=== PATIENT | female | born 1990 | race African-American/Black ===

== ENCOUNTER 2022-10-10 16:26 | Outpatient (CLI) | payer BC, SELFPAY ==
--- NOTE | ~2022-10-10 | US_ITS ---
EXAMINATION: US OB <=14 wk fetus w TV INDICATION: SPOTTING 1ST TRIMESTER, Estimated Gestational Age: 8 weeks, 1 days by LMP. TECHNIQUE: Sonography of the pelvis was performed by transabdominal and transvaginal techniques. COMPARISON: None. RESULT: Uterus: Orientation: Anteverted. 7.7 x 5.4 x 6.4 cm. Myometrium: homogeneous echogenicity. Intrauter ine gestational sac: Not seen. Right ovary: 3.8 x 1.8 x 1.5 cm. Normal sonographic appearance with physiologic follicles. . No ad nexal mass. Left ovary: 3.1 x 3.6 x 3.0 cm. Normal sonographic appearance with physiologic follicles. . No adn exal mass. Pelvis free fluid: None. IMPRESSION: 1. No intrauterine gestational sac detected greater than 6 weeks after the last menstrual period, rep resenting of unknown location with findings that are suspicious for failure. 2. No sonographic evidence of ectopic . 3. 17.5 mL left ovarian volume, with preserved vascular flow and no discrete ovarian mass. Reviewed, dictated and finalized at location K. IMPRESSION: 1. No intrauterine gestational sac detected greater than 6 weeks after the last menstrual period, representing of unknown location with findings cecilia t are suspicious for failure. 2. No sonographic evidence of ectopic . 3. 17.5 mL left ovarian volume, with preserved vascular flow and no discrete ov zoë mass.
== END 2022-10-10 16:27 | disposition home or self-care (01) ==
PROVIDERS: Visit Provider Obstetrics & Gynecology Gynecology
DX: O26.851 Spotting complicating pregnancy, first trimester (principal); Z3A.01 Less than 8 weeks gestation of pregnancy
CPT/HCPCS: 36415; 76801; 76817; 84702; 85461; 86850; 86900; 86901

== ENCOUNTER 2022-10-12 15:17 | Outpatient (CLI) | payer BC, SELFPAY | END 2022-10-12 15:18 | disposition home or self-care (01) | LOC: ANHLAB 15:19 | PROVIDERS: Visit Provider Obstetrics & Gynecology Gynecology | DX: O20.0 Threatened abortion (principal); Z3A.00 Weeks of gestation of pregnancy not specified | CPT/HCPCS: 36415; 84702 ==

== ENCOUNTER 2022-10-24 16:24 | Outpatient (CLI) | payer BC, SELFPAY ==
--- NOTE | ~2022-10-24 | US_ITS ---
EXAMINATION: US OB <=14 wk fetus w TV INDICATION: INAPPROPIATE BHCG TECHNIQUE: Sonography of the pelvis was performed by transabdominal and transvaginal techniques. COMPARISON: None. RESULT: Uterus: Orientation: Anteverted. 7.4 x 4.3 x 6.1 cm. Myometrium: Multiple uterine fibroids, the larg est measuring up to 4.2 cm. Endometrial stripe 5 mm. Intrauterine gestational sac: Not seen. Right ovary: 3.2 x 1.2 x 3.9 cm. Normal sonographic appearance with physiologic follicles. Vascular flow is present. No adnexal mass. Left ovary: 2.5 x 3.1 x 1.2 cm. Normal sonographic appearance with physiologic follicles. Vascular flow is present. No adnexal mass. Pelvis free fluid: No free fluid. IMPRESSION: No gestational sac detected. No sonographic evidence of ectopic . Multiple uterine fibroids. Reviewed, dictated and finalized at location K. IMPRESSION: No gestational sac detected. No sonographic evidence of ectopic . Mult iple uterine fibroids.
== END 2022-10-24 16:25 | disposition home or self-care (01) ==
PROVIDERS: Visit Provider Obstetrics & Gynecology Gynecology
DX: O02.81 Inappropriate change in quantitative human chorionic gonadotropin (hCG) in early pregnancy (principal); Z3A.00 Weeks of gestation of pregnancy not specified; D25.9 Leiomyoma of uterus, unspecified
CPT/HCPCS: 76801; 76817

== ENCOUNTER 2022-10-27 02:58 | Day surgery (SDC) | payer BC, SELFPAY ==
[2022-10-26 09:54] VITALS: BMI 29.3
--- NOTE | 2022-10-26 10:00 | PC.NURSE ---
Report to the Outpatient Waiting Room, entrance under the green pavilion located off [facility], at time _1100_ on date _10/27/22. Planned Procedure Time: _1300_. Time changes happen often and if your time is changed the preop area will call you the afternoon before. - You and your visitor will be asked to self-screen and do not enter if you have any COVID symptoms. - A mask is optional within the hospital at this time. Patients may have clear liquids (water, carbonated beverages, clear teas, apple juice) until 3 hours prior to surgery with a maximum of 20 ounces. - No food from midnight until time of surgery - Infants may have breast milk until 4 hours before surgery, formula 6 hours prior to surgery. - Children will be allowed to drink immediately following surgery. If applicable, please bring a bottle or sippy cup to assist with drinking. Juice, water, soda, and popsicles are readily available. For infants on formula, please bring formula the day of surgery. Pacifiers are allowed. Take the following medications with a SIP of water the morning of surgery: NONE DO NOT STOP ANY OF YOUR OTHER PRESCRIPTION MEDICATIONS PRIOR TO SURGERY ?EXCEPT THE FOLLOWING Medications to discontinue per physician NONE Date to take last dose Please no make-up, nail guamanian, hairspray, perfume, deodorant, or body powder the day of surgery. No jewelry (including any body piercings) or valuables the day of surgery, leave them at home. Please take a shower or bath the night before, or the morning of, surgery with an antibacterial soap. Wear comfortable, loose fitting clothing. Children are encouraged to wear pajamas. - Jewelry must be removed prior to entering the operating room. Rings and piercings that are not removed may be cut off. - The hospital will not accept responsibility for valuables. - Please leave all valuables, including medications, at home the day of surgery. If you are going home after surgery, a licensed feeder driver must drive you home. - NO public transportation without another adult if you receive anesthesia. - We recommend that an adult stay with you for 24 hours following discharge. - We also recommend that you do not drive, make important decision, drink alcoholic beverages, or take any drugs that were not prescribed by your health care provider for at least 24 hours after your discharge time. For Pediatric surgeries, we recommend two adults accompany the child home. Follow any additional instructions given to you from your surgeon. If you or anyone in your household have experienced Covid symptoms in the past week, please notify your surgeon or the nurse liaison at the phone number below for possible testing. Telephone instructions given to _PATIENT_and asked if any additional questions and then verbalized understanding. Patient advised to call surgeon office or pre surgery nurse liaison [phone] if any additional questions.
--- NOTE | 2022-10-27 08:34 | P.PNAN_ITS ---
Anes - Initial Pre Proc Eval Procedure: Operation Date: 10/27/22 13:00 Proposed Procedures p Suction Dilatation and Curettage - Natalie Mathews MD Date/Time: 10/27/22 08:34 Surgeon: Natalie Mathews MD Pre Op Diagnosis: incomp AB Patient Data Age: 32 Gender: F Height: 1.7 m Weight: 85 kg Allergies Allergy/AdvReac Type Severity Reaction Status Date / Time No Known Allergies Allergy Unverified 10/27/22 11:26 Home Medications Medication Instructions Recorded Confirmed Type No Home Medications 10/26/22 10/27/22 History Patient hx anesthesia problems: none Family hx anesthesia problems: none Results Review: All pre-operative results and documents have been reviewed as part of the pre- operative evaluation. [facility] Social History Social History Smoking status: Never smoker Alcohol intake: current Drinks per week: 14 Living arrangements: with family Anes - Eval Final PreProcedure Day of Procedure 10/27/22 08:34 Patient weight: overweight Heart: regular rate and rhythm Lungs: clear to auscultation Airway: Mallampati scale class II Neurological: alert and oriented Last oral intake: >/= 8 hours ASA classification: II Emergent: no Anesthetic plan: proceed Anesthesia type and monitoring: general GIVS and standard monitoring Results Review: All pre-operative results and documents have been reviewed as part of the pre- operative evaluation. Informed Consent: The patient's anesthetic plan and its attendant risks and benefits were discussed with the patient/family/POA. Questions were solicited and answers provided to the satisfaction of the patient/family/POA.
[2022-10-27 11:17] VITALS: BP 136/86; PULSE 107; RESP 16; TEMP 36.9; O2SAT 100
[2022-10-27] MEDS: ACETAMINOPHEN 500 MG TABLET 1000 MG PO (11:28)
[2022-10-27] MEDS: LACTATED RINGERS 1,000 ML 30 ML IV CONT (11:36)
--- NOTE | 2022-10-27 12:37 | WPDHPUPDATE1 ---
History and Physical Update Update Date/Time: 10/27/22 12:37 History and Physical has been reviewed, including an updated exam of the patient. There are NO changes in the patient's condition. Risks, benefits, and alternatives have been discussed and questions answered. Patient agrees to proceed with procedure.
--- NOTE | 2022-10-27 12:37 | PM.HPGS ---
History of Present Illness History of Present Illness Consent: Risks, benefits, and alternatives have been discussed and questions answered. Patient agrees to proceed with procedure. Chief complaint: incomp AB Narrative: Leticia Camacho is a 32 year old female With incomplete . Patient had initially had a heavy bleeding episode. HCG on 10/10 was 1333, on 10/12 1500, and on 10/23 1941. Pelvic ultrasound reveals no obvious intrauterine sac and ovaries and adnexa appear normal. Patient over the last 2 days has had an increase in bleeding again. Patient has had no abdominal pain. It was recommended to undergo D&C to verify no intrauterine pathology. HCGs will be followed until negative. Patient questions are answered and she agrees to proceed. Risks of surgery are reviewed. Review of Systems Review of Systems: not repeated day of surgery; patient states no changes in status PMF Past Medical History Medical History (Updated 10/27/22 @ 12:41 by Natalie Mathews MD) No active medical problems Surgical History Surgical History (Updated 10/27/22 @ 12:40 by Natalie Mathews MD) No history of previous surgery Social History Social History Smoking status: Never smoker Alcohol intake: current Drinks per week: 14 Living arrangements: with family Meds Home Medications and Allergies Home Medications Medication Instructions Recorded Confirmed Type No Home Medications 10/26/22 10/27/22 History Allergies Allergy/AdvReac Type Severity Reaction Status Date / Time No Known Allergies Allergy Unverified 10/27/22 11:26 Vital Signs Vital Signs - 24 hr 10/27/22 11:17 Temperature 98.4 F Pulse Rate 107 H Respiratory Rate 16 Blood Pressure 136/86 Pulse Oximetry 100 Oxygen Delivery Room Air Exam Const: General: healthy appearing and alert Orientation/consciousness: patient oriented x3 Resp: Effort & Inspection: normal respiratory effort GI: GI Palp: Yes Soft to palpation, No Tenderness to palpation present (GI) and No Palpable mass present : External Female Exam: normal external appearance Speculum Exam - Vagina: normal appearance of the vagina and normal vaginal discharge Speculum Exam - Cervix: normal appearance of the cervix Bimanual exam- vagina & uterus: uterine size normal and consistency normal Bimanual Exam- Adnexa, other: normal adnexae and No adnexal tenderness Neuro: General: patient oriented x3 Assessment and Plan Assessment and plan (1) Incomplete : Code(s): O03.4 - Incomplete spontaneous without complication Status: Acute Assessment and Plan: Patient with incomplete and inappropriate rise of beta-hCG. Plan to proceed with D&C.
[2022-10-27] MEDS: MIDAZOLAM HCL (*CRX) 2 MG/2 ML VIAL IV PUSH (12:50)
[2022-10-27] MEDS: LIDOCAINE HCL 1% LOCAL INJ 10 ML VIAL INFILTRATE (13:40)
--- NOTE | 2022-10-27 13:45 | P.OP_ITS ---
Procedure Note - Detailed Date of Procedure 10/27/22 Pre-op Diagnosis Incomplete Post-op Diagnosis Same Procedure Performed suction D&C Surgeon Natalie Mathews MD Anesthesia MAC and Local Findings uterus sounds to 10cm; the cervix is soft and dilated to approximately0.5cm; the products of conception are minimal Description of Procedure The patient is taken to operating room and placed under anesthesia in the dorsal lithotomy position. She was prepped and draped in usual sterile fashion. [place] speculum was placed in the vagina and the cervix grasped on the anterior lip with tenaculum. The cervix is injected in each quadrant with 1% lidocaine. The uterus is sounded to 10cm. Cervix is serially dilated to an 8 Hegar with minimal resistance. The cervix is already dilated approximately a 5mm the 8mm curved suction curette is used to evacuate the uterus with minimal return of products. Sharp curette is used to curette the endometrium and a good uterine cry was noted in all areas. One additional pass with suction curette was taken. No further products were noted. Instruments are removed. Sponge, needle, and instrument counts are correct per the OR staff. Patient is awakened from anesthesia and taken to recovery in stable condition. Estimated Blood Loss 5 Drains No Packing No Pathology Yes ( Endometrial products of conception) Complications No immediate complications Condition Stable Disposition PACU
[2022-10-27 13:48] VITALS: BP 144/88; PULSE 110; RESP 16; O2SAT 100
[2022-10-27 14:18] VITALS: BP 137/94; PULSE 87; RESP 16
== END 2022-10-27 14:43 | disposition home or self-care (01) ==
PROVIDERS: Visit Provider Obstetrics & Gynecology Gynecology
PROC: (CPT 59812; principal; 2022-10-27 13:00)
DX: O03.4 Incomplete spontaneous abortion without complication (principal)
CPT/HCPCS: 59812; 88305; A9270; J1100; J1885; J2250; J2405; J2704; J3010; J7120

== ENCOUNTER 2022-11-27 13:28 | Outpatient (RCR) | payer BC, SELFPAY ==
[2022-11-06 16:39] LABS: Beta HCG Quantitative 297.83 mIU/ML
[2022-11-20 16:48] LABS: Beta HCG Quantitative 6.47 mIU/ML
[2022-11-27 14:47] LABS: Beta HCG Quantitative < 2.39 mIU/ML
== END 2023-01-21 23:59 | disposition home or self-care (01) ==
LOC: ANHLAB 13:28
PROVIDERS: Visit Provider Obstetrics & Gynecology Gynecology
DX: O03.9 Complete or unspecified spontaneous abortion without complication (principal)
CPT/HCPCS: 36415; 84702